=== PATIENT | male | born 1995 | race Two or more races ===

== ENCOUNTER 2022-05-21 09:59 | Emergency (ER) | payer OTHER ==
[~2022-05-21] VITALS: Ht 185.4 cm; Wt 84.8 kg
[2022-05-21] MEDS ORDERED: KETO10TA2 PO (12:44)
[2022-05-21] MEDS ORDERED: OFLOXACIN5 M1 OT (12:44)
== END 2022-05-21 13:20 ==
LOC: ER 09:59
DX: H60.92 Unspecified otitis externa, left ear (principal)